=== PATIENT | male | born 1980 | race Caucasian/White ===

== ENCOUNTER 2023-10-03 06:03 | Day surgery (SDC) | payer OTHER, SELFPAY ==
[2023-10-03] VITALS (10 sets, daily range): BP systolic 88–129; BP diastolic 65–85; BMI 31.2
[2023-10-03] MEDS: NORMOSOL-R 1000 IV (07:04)
== END 2023-10-03 10:07 ==
LOC: SDS 06:03
PROVIDERS: ATTENDING PHYSICIAN Specialist
DX: N43.41 Spermatocele of epididymis, single (principal)
CPT/HCPCS: 54840; 88304

== ENCOUNTER 2023-11-26 19:17 | Emergency (ER) | payer OTHER, SELFPAY ==
[2023-11-26 19:20] VITALS: BP 144/83; BMI 30.4
--- NOTE | 2023-11-26 19:46 | ED.GENMED ---
History of Present Illness
General
Chief Complaint: Skin Problem
Source: patient
Time Seen by Provider: 11/26/23 19:32
History of Present Illness
History of Present Illness:
42yoM with a history of a spermatocele s/p spermatocelectomy on 10/03/[address] Mendez presenting for evaluation of a wound check. Since the surgery, patient has been having issues with wound healing. He reports that his wound has opened up
several times and the medical staff at his nursing home applied steri-strips. The wound opened up again last night and a large clot came out with foul smelling discharge. He also reports right testicular pain and swelling which has been ongoing since the
procedure. He denies any fevers or chills. No difficulty with urination.
Past History
Past History
ED Past Medical History: Other (Hemorrhoids with bleeding in the past ); Negative Asthma, HTN, Hypercholesterolemia or NIDDM
ED Past Surgical History: None
Social History
Tobacco: Smoker
Alcohol: Occasional
Drug: None
Personal: Single
Living: alone
Employment: Other
Family History
Family History: Other (Father with colon cancer )
Phy Exam
Physical Exam
Physical Exam:
R hemiscrotum is enlarged with diffuse erythema and induration. Open wound present to anterior scrotum with a small amount of yellow drainage. No crepitus.
General Physical Exam
General Presentation: well appearing and no apparent distress
General age: appears stated age
General Skin: warm and dry
General Habitus: normal
General Mental: alert
Course
Orders/Labs/Results
Orders:
Orders
11/26/23 19:45
US Scrotum Urgent
Comment:
Reason For Exam: Postop R testicular swelling and pain
11/26/23 21:03
Complete Blood Count/With Diff Urgent
Comprehensive Metabolic Panel Urgent
11/26/23 21:54
Sulfamethox./Trimethoprim Ds [Bactrim Ds 800 mg/160 mg] 1 tablet PO NOW STA
Abnormal Lab Results
11/26/23
21:03
RBC 4.50 L 10^6/uL
(4.70-6.10)
Hgb 12.5 L g/dL
(13.0-18.0)
Hct 37.0 L %
(39.0-52.0)
11/26/23 21:03
11/26/23 21:03
Vital Signs
Initial and Last Documented VS:
Initial Vital Signs
Temp Pulse Resp BP Pulse Ox
98.3 F 73 18 144/83 98
11/26/23 19:20 11/26/23 19:20 11/26/23 19:20 11/26/23 19:20 11/26/23 19:20
Last Documented Vital Signs
Temp Pulse Resp BP Pulse Ox
98.3 F 73 18 144/83 98
11/26/23 19:20 11/26/23 19:20 11/26/23 19:20 11/26/23 19:20 11/26/23 19:20
MDM/Problems Addressed
Differential Diagnosis Includes:
42yoM here with wound dehiscence and R testicular pain and swelling. He is s/p spermatocelectomy about 6 weeks ago. No f/c. He is well appearing in no distress. He is afebrile and hemodynamically stable. The R hemiscrotum is enlarged and indurated
on exam with diffuse erythema. Yellow drainage noted from wound. Differential diagnosis includes but is not limited to: postop wound dehiscence, scrotal abscess, scrotal hematoma with infection
Initial ED plan: Check CBC, CMP, scrotal ultrasound. Will discuss with urology.
*Critical Care Note
Total Time (30-74mins, 75-104mins- exclusive of procedures): Not Applicable
Update Note
Update Note:
Scrotal ultrasound shows findings suggestive of a R epididymal abscess with scrotal wall edema and swelling. White count is normal. Discussed case with Dr. Guzman, catalyst concentration operator urologist, who evaluated patient at bedside. Urology states the ultrasound
findings are likely resolving hematoma. Drainage not recommended and exam is inconsistent with abscess/cellulitis. Urology recommending discharging with antibiotics and return to the ED with lack of improvement/worsening symptoms. Patient discharged
with a script for Bactrim. Advised close f/u with urology and ED return precautions discussed. He was discharged in stable condition.
ED Attending Note
-
Portions of this chart may have been created with voice recognition software.� Occasional wrong word or��sound alike� substitutions may have occurred due to the inherent limitations of voice recognition software.
Discharge Plan
Departure
Patient Disposition: Home (Routine Discharge)
Date of Disposition: 11/26/23
Time of Disposition: 21:53
Patient with high blood pressure during this ER visit?: No
Discharge Problem:
Hematoma of scrotum
Instructions: Hematoma
Prescriptions:
New
sulfamethoxazole-trimethoprim [Bactrim DS] 800-160 mg tablet
1 tab PO BID Qty: 13 0RF
No Action
acetaminophen 325 mg Tablet
650 mg PO BID
prazosin 1 mg Capsule
1 mg PO HS PRN (Reason: BPH)
tamsulosin 0.4 mg Capsule
0.4 mg PO HS
Referrals:
[place] [Family Provider] -
Activity Restrictions/Additional Instructions:
Take antibiotics as prescribed.
Please follow-up with your urologist. Return to the ER with any new or worsening symptom, fevers, chills.
Interventions
Interventions:
*Risk Screen - Suicide Last Done: 11/26/23 19:26
*General Assessment Last Done: 11/26/23 19:26
*Neglect/Abuse Screening Last Done: 11/26/23 19:26
*ED COVID-19 Vaccine History Last Done: 11/26/23 19:26
Discharge Date and Time
Print Language: DANISH
--- NOTE | 2023-11-26 20:51 | CONS.URO ---
Addendum entered and electronically signed by Micky Guzman MD 11/26/23 21:50:
Reviewed scrotal US read as epididymal abscess and cellulitis
Clinical picture does not fit with active infection given patient has had steady improvement in pain and swelling
Suspect collection is still dissolving blood products
Do not think he would benefit from scrotal exploration and drainage at this time
Recommend local wound care and antibiotic course to prevent superinfection of dissolving hematoma
Expect some continued hematoma drainage
Return to ER if symptoms not steadily improving
Original Note:
Consultation
-
Performing Provider: Megan
Reason for Consultation: Wound drainage
Medical History
History of Present Illness
42M with spermatocele s/p surgical removal with Dr. Mendez 09/2023
He had a hematoma post op with significant scrotal swelling
1 month post op he saw Dr. Mendez and suspected to have some dissolving clot from post op hematoma
His swelling has continued to decrease over the last month
1 week ago the wound opened a bit and had some drainage
Staff at the shelter tried to keep the wound closed with steri strips and glue
Today the wound opened up and had some small clot drainage
Past Medical History
Past Medical History: Other (Spermatocele)
Past Surgical History: Urological (Spermatocelectomy)
Social History
Tobacco: Non-smoker
Alcohol: None
Drug: None
Living: [facility]
Family History
Family History: Reviewed & Not Pertinent
Allergies/Home Medications
Allergies
Allergy/AdvReac Type Severity Reaction Status Date / Time
No Known Allergies Allergy Verified 10/03/23 06:40
Home Medications
�Medication �Instructions �Recorded �Confirmed �Type
acetaminophen 325 mg tablet 650 mg PO BID 09/30/23 10/03/23 History
prazosin 1 mg capsule 1 mg PO HS PRN BPH 09/30/23 10/03/23 History
tamsulosin 0.4 mg capsule 0.4 mg PO HS 09/30/23 10/03/23 History
Physical Exam
Vital Signs
Vital Signs
Temp Pulse Resp BP Pulse Ox
98.3 F 73 18 144/83 98
11/26/23 19:20 11/26/23 19:20 11/26/23 19:20 11/26/23 19:20 11/26/23 19:20
Physical Exam
General: Well Developed, Well Nourished and No Apparent Distress
Respiratory: Clear
GI: Soft and Non Tender
Genito-urinary: Other (R testicular and scrotal induration, mild separation of superior portion of scrotal incision. No fluctuant or expressible collection)
Neuro: AO x 3
Psych: Calm and Intact Judgement
Assessment / Plan
-
42M with wound drainage and persistent induration 2 months post spermatocele repair
- Small opening of incision with drainage of some mildly purulent lysed clot
- No evidence of associated cellulitis or systemic infection
- No significant palpable fluid collection
- Obtain scrotal US to assess testicle
Given improvement in swelling over the past several weeks, would not recommend intervention unless there is a large persistent collection
Recommend leaving small wound defect open to drain any residual fluid and old blood clot, change gauze as needed
7 day course of antibiotic with MRSA coverage
[2023-11-26 21:12] LABS: % Basophils 0.8 % (0-2); % Eosinophils 2.4 % (0-6); % Immature Granulocytes 0.2 % (0-0.5); % Lymphocytes 31.3 % (20.5-51.1); % Monocytes 8.4 % (1.7-9.3); % Neutrophils 56.9 % (42.2-75.2); Absolute Basophils 0.1 10^3/uL (0-0.2); Absolute Eosinophils 0.2 10^3/uL (0-0.7); Absolute Lymphocytes 1.9 10^3/uL (1.2-3.4); Absolute Monocytes 0.5 10^3/uL (0.1-0.6); Absolute Neutrophils 3.5 10^3/uL (1.4-6.5); Hemoglobin 12.5 g/dL (13.0-18.0); Mean Corp Hgb Conc. 33.8 g/dL (33.0-37.0); Mean Corpuscular Hgb 27.8 pg (27.0-31.0); Mean Corpuscular Volume 82.2 fL (80.0-94.0); Nucleated Red Blood Cells % 0 % (-); Platelet Count 179 10^3/uL (130-400); Red Cell Dist. Width 12.6 % (11.5-14.5); White Blood Cell Count 6.2 10^3/uL (4.8-10.8)
[2023-11-26 21:31] LABS: ALT (SGPT) 24 U/L (0-50); AST (SGOT) 27 U/L (17-59); Albumin 4.2 g/dl (3.5-5.0); Alkaline Phosphatase 113 U/L (38-126); Blood Urea Nitrogen 19 mg/dl (9-20); Calcium 9.2 mg/dl (8.4-10.2); Carbon Dioxide 29 mmol/L (22-30); Chloride 104 mmol/L (98-107); Estimated Creatinine Clearance > 125 ml/min; Glucose 93 mg/dl (70-99); Potassium 4.4 mmol/L (3.5-5.1); Sodium 139 mmol/L (135-145); Total Bilirubin 0.5 mg/dl (0.2-1.3); Total Protein 6.8 g/dl (6.3-8.2); eGFR > 60.00
[2023-11-26 22:01] VITALS: BP 145/93
[2023-11-26] MEDS: BACTRIM DS 800 MG/160 MG 1 TABLET PO (22:01)
== END 2023-11-26 22:05 | disposition home or self-care (01) ==
LOC: EMR 19:17
PROVIDERS: Physician Assistant; EMERGENCY PHYSICIAN Emergency Medicine; OTHER PHYSICIAN Urology
DX: T81.31XA Disruption of external operation (surgical) wound, not elsewhere classified, initial encounter (principal); S30.22XA Contusion of scrotum and testes, initial encounter; R22.9 Localized swelling, mass and lump, unspecified; Y83.8 Other surgical procedures as the cause of abnormal reaction of the patient, or of later complication, without mention of misadventure at the time of the procedure; Y92.149 Unspecified place in prison as the place of occurrence of the external cause; Z98.890 Other specified postprocedural states
CPT/HCPCS: 99284; 76870; 80053; 85025; 93976

== ENCOUNTER → 2024-01-05 18:55 | Day surgery (SDC) | payer OTHER, SELFPAY ==
[2024-01-05] VITALS (8 sets, daily range): BP systolic 105–134; BP diastolic 52–80
--- NOTE | 2024-01-05 17:28 | ED.GENMED ---
History of Present Illness
General
Chief Complaint: Throat Problem
Source: patient
Exam Limitations: none
Time Seen by Provider: 01/05/24 17:21
History of Present Illness
History of Present Illness:
See MDM
Past History
Past History
ED Past Medical History: Other (Hemorrhoids with bleeding in the past ); Negative Asthma, HTN, Hypercholesterolemia or NIDDM
ED Past Surgical History: None
Social History
Tobacco: Smoker
Alcohol: Occasional
Drug: None
Personal: Single
Living: alone
Employment: Other
Family History
Family History: Other (Father with colon cancer )
Phy Exam
Physical Exam
Physical Exam:
See MDM
Course
Orders/Labs/Results
Orders:
Orders
01/05/24 17:22
Abdomen Xray - 1 View [CR Abdomen - 1 View] Urgent
Comment:
Reason For Exam: claims he swallowed razor blade at 2pm
01/05/24 17:44
Consult Gastroenterology [GASTROINTESTINAL CONSULT] Urgent
Consulting Provider: Paula Stallworth
Was physician already notified: Yes
01/05/24 18:35
Dexamethasone Pf [Decadron] 10 mg .ROUTE .STK-MED ONE
Fentanyl Citrate/Pf [Sublimaze] 100 mcg .ROUTE .STK-MED ONE
Propofol [Diprivan] 40 ml .ROUTE .STK-MED
Rocuronium [place] [Rocuronium] 100 mg .ROUTE .STK-MED ONE
Sugammadex Sodium [Bridion] 200 mg .ROUTE .STK-MED ONE
01/05/24 18:36
Lidocaine 2% Mpf [Xylocaine Mpf 2%] 100 mg .ROUTE .STK-MED ONE
Ondansetron Injectable [Zofran] 4 mg .ROUTE .STK-MED ONE
Vital Signs
Initial and Last Documented VS:
Initial Vital Signs
Temp Pulse Resp BP Pulse Ox
98.4 F 66 18 134/80 97
01/05/24 17:16 01/05/24 17:16 01/05/24 17:16 01/05/24 17:16 01/05/24 17:16
Last Documented Vital Signs
Temp Pulse Resp BP Pulse Ox
98.4 F 66 18 134/80 97
01/05/24 17:16 01/05/24 17:16 01/05/24 17:16 01/05/24 17:16 01/05/24 17:16
MDM/Problems Addressed
Differential Diagnosis Includes:
HPI and MDM Narrative:
43-year-old male presenting for evaluation of ingested razor blade. [place]. Patient states he broke the razor blade out of the holster so he could use it with a comb to shave his ferrari. Because the patient could get in trouble
with an open razor blade, he hides it in bread. Patient went to group therapy. When he returned, he forgot that he had hit in the razor blade and bread and he swallowed the bread. I questioned whether or not he chews his food. Patient states he
has dentures and does not normally chew his food completely so believes he swallowed it whole. He denies chest or abdominal pain or bleed
Physical exam
General: Well appearing and non-toxic
HEENT: protecting airway
Neck: appears supple
CV: No evidence of cyanosis
Resp: No accessory muscle use
Abd: Non-distended
Extremities: No deformities
Neuro: alert
Psych: Normal affect
Skin: Intact
Problems Addressed including Acute and Chronic Conditions affecting care:
1. Ingested razor
Acuity: acute
Prognosis: stable
Details: Patient denies purposeful self-harm. Will obtain x-ray
Updates
5:45 PM abdominal x-ray confirms metallic foreign body. GI made aware
Differential Diagnosis (but not limited to): Ingested razor blade, purposeful self-harm
Testing considered: Chest x-ray will obtain abdominal x-ray looking at the diaphragm first
Drug therapy (if applicable): OTC meds, please see d/c instruction regarding Rx drugs
Amount and/or Complexity of Data Reviewed
Clinical info obtained from: Patient
External data reviewed: N/A
Labs I independently reviewed (but not limited to): N/A
Radiology: X-ray independently reviewed: Abdominal x-ray shows metallic foreign body likely in the stomach
Pulse Ox: not hypoxic
EKG independently reviewed: N/A
Front End Specialist: N/A
Critical Care: N/A
Risk of Complication:
Social Determinants of health: Poor social support
Discussed with other providers: Gastroenterology
Escalation of Care includes Admit/Obs: given the concern for ingestion of razor blade, GI will evaluate for endoscopy
Occasional wrong word or 'sound a like' substitutions may have occurred due to the inherent limitations of voice recognition software. Read the chart carefully and recognize, using context, where substitutions have occurred.
ED Attending Note
-
Portions of this chart may have been created with voice recognition software.� Occasional wrong word or��sound alike� substitutions may have occurred due to the inherent limitations of voice recognition software.
Discharge Plan
Departure
Patient Disposition: GI LAB
Date of Disposition: 01/05/24
Time of Disposition: 18:51
Admit to: GI lab
Presentation/result/management discussed w/ accepting MD/DO: Gastroenterology
Discharge Problem:
Foreign body ingestion
Prescriptions:
No Action
acetaminophen 325 mg Tablet
650 mg PO BID
prazosin 1 mg Capsule
1 mg PO HS PRN (Reason: BPH)
tamsulosin 0.4 mg Capsule
0.4 mg PO HS
sulfamethoxazole-trimethoprim [Bactrim DS] 800-160 mg tablet
1 tab PO BID Qty: 13 0RF
Referrals:
UNKNOWN - PT DOES,NOT KNOW [Family Provider] -
Interventions
Interventions:
*Risk Screen - Suicide Last Done: 01/05/24 17:16
*General Assessment Last Done: 01/05/24 17:16
*Neglect/Abuse Screening Last Done: 01/05/24 17:16
ED- Pulmonary Assessment Last Done: 01/05/24 18:36
Discharge Date and Time
Print Language: [id number]
== END ==
LOC: EMR 17:15 → SDS 18:55
PROVIDERS: CONSULT PHYSICIAN Internal Medicine Gastroenterology; EMERGENCY PHYSICIAN Student in an Organized Health Care Education/Training Program
DX: T18.2XXA Foreign body in stomach, initial encounter (principal); W44.9XXA Unspecified foreign body entering into or through a natural orifice, initial encounter; K21.00 Gastro-esophageal reflux disease with esophagitis, without bleeding
CPT/HCPCS: 43247; 74018; 99285